=== PATIENT | female | born 2000 | race Caucasian/White ===

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

== ENCOUNTER 2024-03-09 13:01 | Outpatient (CLI) | payer OTHER, SELFPAY ==
--- NOTE | ~2024-03-09 | US_ITS ---
EXAMINATION TYPE: US breast RT limited COMPARISON: Palpable lump right breast REASON FOR STUDY: N63.10 - Unspecified lump in the right breast, unspecifie... TECHNIQUE: Targeted sonographic evaluation of the right breast was performed. INTERPRETATION: Sonographic imaging of the right breast 1:00 position was performed, 6 cm in the nipple. No solid or cystic mass seen. No sonographic abnormality seen in the region scanned.. IMPRESSION: Negative. No sonographic correlate seen at the area of clinical concern. BI-RADS 1: Normal Reviewed, dictated and finalized at location M.
== END 2024-03-09 13:02 | disposition home or self-care (01) ==
PROVIDERS: Visit Provider Student in an Organized Health Care Education/Training Program
DX: N63.10 Unspecified lump in the right breast, unspecified quadrant (principal)
CPT/HCPCS: 76642

== ENCOUNTER 2024-04-01 15:39 | Outpatient (CLI) | payer OTHER, SELFPAY ==
--- NOTE | ~2024-04-01 | US_ITS ---
EXAMINATION: US OB <=14 wk fetus w TV INDICATION: N91.2 - Amenorrhea, unspecified TECHNIQUE: Sonography of the pelvis was performed by transabdominal and transvaginal techniques. COMPARISON: None. RESULT: Uterus: 10.3 x 4.9 x 6.7 cm. Anteverted. Homogenous myometrium. Intrauterine gestational sac: Single present. Mean Sac Diameter: 2.77 cm, corresponding gestational age 7 week 6 days. Yolk sac: 0.5 cm . Embryo: Single present. [place] rump length: 0.97 cm, corresponding gestational age 7 weeks, 0 days. Gestational heart rate: present 139 bpm. Subgestational hematoma: Absent . Right ovary: 4.1 x 1.8 x 2.8 cm. Vascular flow is present. No adnexal mass. Left ovary: 3.1 x 1.8 x 2.7 cm. Vascular flow is present. No adnexal mass. Pelvis free fluid: None. IMPRESSION: Single, live intrauterine gestation. Estimated Gestational Age: 7 weeks, 0 days by crown rump length. MERVIN by ultrasound 11/15/2024. Reviewed, dictated and finalized at location K. IMPRESSION: Single, live intrauterine gestation. Estimated Gestational Age: 7 weeks, 0 days by crown rump length. MERVIN by ultras ound 11/15/2024.
== END 2024-04-01 15:40 | disposition home or self-care (01) ==
LOC: ANHIMG 15:39
PROVIDERS: Visit Provider Student in an Organized Health Care Education/Training Program
DX: Z34.91 Encounter for supervision of normal pregnancy, unspecified, first trimester (principal); Z3A.01 Less than 8 weeks gestation of pregnancy
CPT/HCPCS: 76801; 76817

== ENCOUNTER 2024-06-23 15:11 | Outpatient (CLI) | payer OTHER, SELFPAY ==
[2024-06-23 15:45] LABS: Basophils Percent Auto 0.2 % (0.2-1.2); Eosinophils Absolute Auto 0.2 K/mm3 (0-0.3); Eosinophils Percent Auto 1.2 % (0-4.4); Hematocrit 37.1 % (37.0-47.0); Hemoglobin 12.5 g/dL (12.0-15.0); Immature Granulocyte Absolute 0.08 K/mm3 (0.00-0.031); Immature Granulocyte Percent A 0.6 % (0-0.5); Lymphocytes Absolute Auto 2.12 K/mm3 (0.9-3.2); Lymphocytes Percent Auto 15.5 % (18.3-44.2); Mean Corpuscular HGB Conc 33.7 g/dl (32-36); Mean Corpuscular Hemoglobin 30.5 pg (26-34); Mean Corpuscular Volume 90.5 fl (80-100); Mean Platelet Volume 10.2 fl (7.4-10.4); Monocytes Absolute Auto 0.8 K/mm3 (0.1-0.6); Monocytes Percent Auto 6.1 % (2.6-8.5); Neutrophils Absolute Auto 10.4 K/mm3 (1.3-6.7); Neutrophils Percent Auto 76.4 % (45.5-73.1); Platelet Count Result 257 k/mm3 (150-375); Red Cell Distribution Width 13.2 % (11.5-14.5); White Blood Count 13.7 K/mm3 (4.5-10.0)
[2024-06-23 16:51] LABS: Hepatitis B Surface Antigen Negative (Negative)
[2024-06-23 18:20] LABS: HIV 1/2 Ab P24 Ag Result Negative (Negative)
[2024-06-24 08:04] LABS: CMV IgG Antibody <0.60 U/mL; Varicella IgG Antibody 1.32 S/CO
[2024-06-24 10:21] LABS: Rapid Plasma Reagin Non-Reactive (NonReactive)
== END 2024-06-23 15:12 | disposition home or self-care (01) ==
PROVIDERS: PCP Student in an Organized Health Care Education/Training Program; Visit Provider Student in an Organized Health Care Education/Training Program
DX: N94.89 Other specified conditions associated with female genital organs and menstrual cycle (principal)
CPT/HCPCS: 36415; 84702; 85025; 86592; 86644; 86703; 86747; 86762; 86787; 86850; 86900; 86901; 87086; 87186; 87340; G0432

== ENCOUNTER 2024-10-06 10:52 | Observation (INO) | payer OTHER, SELFPAY ==
[2024-10-06] VITALS (13 sets, daily range): BP systolic 114–119; BP diastolic 62–72; PULSE 79–98; O2SAT 95–100; BMI 36.3
--- NOTE | 2024-10-06 11:20 | PC.NURSE ---
Dr. Clay notified of pt's admission, physical assessment, FHR and vital signs. New orders received to discharge pt home and to encourage pt to wear her compression socks as well as go to the lab to get her 28 week labs drawn.
--- NOTE | 2024-10-06 11:41 | OBADM ---
This patient, Lashae R Hammond, admitted to the OB room OB Post 115 for observation. Patient/family oriented to hospital policies and general routines including ID bracelet, bed and alarms, visiting hours, pain management, procedures, bathroom and other care routines, personal items, smoking policy, room service/diet, and visiting hours. Patient/Family are encouraged to report perceived risks to care and to ask questions if they do not understand what they are told or what they should do.
--- NOTE | 2024-10-07 08:18 | PM.OBTRLD ---
OB - Triage/Final Diagnosis Visit Information Date of evaluation: 10/06/24 Reason for evaluation: other (swelling) Comments/Additional reasons for admission: I have assessed the risk for this patient, Lashae Hammond, and determined that she would benefit from observation care. Evaluation Vital signs: Vital Signs - 24 hr 10/06/24 11:10 10/06/24 11:15 10/06/24 11:25 Pulse Rate 98 Blood Pressure 114/72 Pulse Oximetry 95 Oxygen Delivery Room Air 10/06/24 11:30 10/06/24 11:31 10/06/24 11:35 Pulse Rate 87 Blood Pressure 115/68 Pulse Oximetry 98 98 Oxygen Delivery 10/06/24 11:40 10/06/24 11:45 10/06/24 11:50 Pulse Rate Blood Pressure Pulse Oximetry 98 98 97 Oxygen Delivery 10/06/24 11:55 10/06/24 12:00 10/06/24 12:01 Pulse Rate 91 Blood Pressure 119/62 Pulse Oximetry 100 99 Oxygen Delivery 10/06/24 12:05 10/06/24 12:10 Pulse Rate Blood Pressure Pulse Oximetry 99 100 Oxygen Delivery
== END 2024-10-06 12:20 | disposition home or self-care (01) ==
PROVIDERS: Admitting Provider Student in an Organized Health Care Education/Training Program; Visit Provider Student in an Organized Health Care Education/Training Program
DX: O12.03 Gestational edema, third trimester (principal); Z3A.34 34 weeks gestation of pregnancy
CPT/HCPCS: G0378; G0379

== ENCOUNTER 2024-10-06 12:28 | Outpatient (CLI) | payer OTHER, SELFPAY ==
[2024-10-06 14:14] LABS: Basophils Percent Auto 0.2 % (0.2-1.2); Eosinophils Absolute Auto 0.1 K/mm3 (0-0.3); Eosinophils Percent Auto 0.7 % (0-4.4); Hematocrit 35.1 % (37.0-47.0); Hemoglobin 11.8 g/dL (12.0-15.0); Immature Granulocyte Absolute 0.12 K/mm3 (0.00-0.031); Immature Granulocyte Percent A 0.8 % (0-0.5); Lymphocytes Percent Auto 11.9 % (18.3-44.2); Mean Corpuscular HGB Conc 33.6 g/dl (32-36); Mean Corpuscular Hemoglobin 28.8 pg (26-34); Mean Corpuscular Volume 85.6 fl (80-100); Mean Platelet Volume 10.4 fl (7.4-10.4); Monocytes Absolute Auto 0.9 K/mm3 (0.1-0.6); Monocytes Percent Auto 6.4 % (2.6-8.5); Neutrophils Absolute Auto 11.4 K/mm3 (1.3-6.7); Platelet Count Result 259 k/mm3 (150-375); Red Cell Distribution Width 12.7 % (11.5-14.5); White Blood Count 14.3 K/mm3 (4.5-10.0)
[2024-10-06 14:40] LABS: Glucose 1 Hour PP 50gm Dose 92 mg/dL
[2024-10-06 15:17] LABS: HIV 1/2 Ab P24 Ag Result Negative (Negative)
[2024-10-07 11:14] LABS: Rapid Plasma Reagin Non-Reactive (NonReactive)
== END 2024-10-06 12:29 | disposition home or self-care (01) ==
PROVIDERS: PCP Obstetrics & Gynecology; Visit Provider Obstetrics & Gynecology
DX: Z34.90 Encounter for supervision of normal pregnancy, unspecified, unspecified trimester (principal)
CPT/HCPCS: 36415; 82947; 85025; 86592; 86703; 87086; G0432

== ENCOUNTER 2024-10-31 00:29 | Observation (INO) | payer OTHER, SELFPAY ==
[2024-10-31 00:47] VITALS: BP 125/58; PULSE 97
[2024-10-31 01:21] LABS: Add Urine Microscopic? YES; Appearance Urine Cloudy (Clear); Bacteria Urine 4+ /hpf; Bilirubin Urine Negative (Negative); Blood Urine Negative (Negative); Color Urine Yellow (Yellow); Glucose Urine UA Negative (Negative); Ketones Urine Trace mg/dL (Negative); Leukocyte Esterase Ur Trace LEU/UL (Negative); Nitrate Urine Positive (Negative); Protein Urine 2+ mg/dL (Negative); RBC Urine 0-2 /hpf (0-2); Specific Grav Ur 1.039 (1.001-1.035); Squamous Epithelial Cell Urine Few /hpf (Few); pH Urine 7.5 (5.0-9.0)
[2024-10-31 02:21] VITALS: BMI 36.6
[2024-10-31] MEDS: AMOXICILLIN 500 MG CAPSULE PO (02:24)
--- NOTE | 2024-11-02 00:44 | PM.OBTRLD ---
OB - Triage/Final Diagnosis Visit Information Comments/Additional reasons for admission: I have assessed the risk for this patient, Lashae Hammond, and determined that she would benefit from observation care. Evaluation Laboratory results: Laboratory Tests 10/31/24 00:58 Urine Color Yellow Urine Appearance Cloudy H Urine pH 7.5 Ur Specific [place] 1.039 H Urine Protein 2+ H Urine Glucose (UA) Negative Urine Ketones Trace H Ur Blood (Man) Negative Urine Nitrate Positive H Urine Bilirubin Negative Urine Urobilinogen 1.0 Leukocyte Esterase Rfl Trace H Urine RBC 0-2 Urine WBC 6-10 H Ur Squamous Epith Cells Few Urine Bacteria 4+ H Urine Casts 3-5 Final Diagnosis (1) Abdominal cramping affecting : Code(s): O26.899 - Other specified related conditions, unspecified trimester; R10.9 - Unspecified abdominal pain Status: Acute
== END 2024-10-31 02:35 | disposition home or self-care (01) ==
PROVIDERS: Admitting Provider Obstetrics & Gynecology; PCP Obstetrics & Gynecology; Visit Provider Obstetrics & Gynecology
DX: O26.893 Other specified pregnancy related conditions, third trimester (principal); R10.9 Unspecified abdominal pain; Z3A.37 37 weeks gestation of pregnancy
CPT/HCPCS: 81001; 87086; 87186; A9270; G0378; G0379

== ENCOUNTER 2024-11-10 05:02 | Inpatient (IN) | payer OTHER, SELFPAY ==
[2024-11-10] VITALS (155 sets, daily range): BP systolic 89–145; BP diastolic 39–112; PULSE 39–258; RESP 16–18; TEMP 36.2–37.1; O2SAT 95–100; BMI 38.3
--- NOTE | 2024-11-10 05:13 | LDADM ---
[facility] was admitted to Labor/Delivery/Recovery 104 on 11/10/24 at 05:02. Plans for labor, pain management and were discussed with patient. Patient/family oriented to hospital policies and general routines including ID bracelet, bed and alarms, visiting hours, pain management, procedures, bathroom and other care routines, personal items, smoking policy, room service/diet and guest tray routines, security routines, and visiting hours. Patient/Family are encouraged to report perceived risks to care and to ask questions if they do not understand what they are told or what they should do. See OBIX for further documentation.
[2024-11-10] MEDS: miSOPROStol 25 MCG TABLET 50 MCG VAGINAL (05:51)
[2024-11-10 05:56] LABS: Basophils Percent Auto 0.3 % (0.2-1.2); Eosinophils Absolute Auto 0.2 K/mm3 (0-0.3); Eosinophils Percent Auto 1.1 % (0-4.4); Hematocrit 34.8 % (37.0-47.0); Hemoglobin 11.3 g/dL (12.0-15.0); Immature Granulocyte Percent A 0.7 % (0-0.5); Lymphocytes Absolute Auto 1.95 K/mm3 (0.9-3.2); Lymphocytes Percent Auto 13.9 % (18.3-44.2); Mean Corpuscular HGB Conc 32.5 g/dl (32-36); Mean Corpuscular Volume 83.1 fl (80-100); Mean Platelet Volume 10.7 fl (7.4-10.4); Monocytes Absolute Auto 0.9 K/mm3 (0.1-0.6); Monocytes Percent Auto 6.3 % (2.6-8.5); Neutrophils Absolute Auto 10.9 K/mm3 (1.3-6.7); Neutrophils Percent Auto 77.7 % (45.5-73.1); Platelet Count Result 243 k/mm3 (150-375); Red Blood Count 4.19 M/mm3 (4.2-5.4); Red Cell Distribution Width 13.7 % (11.5-14.5)
--- NOTE | 2024-11-10 06:32 | WPDANESEPP ---
Anes - Eval Pre Procedure Procedure: pain during labor Date/Time: 11/10/24 06:32 Surgeon: Nithin Preop Diagnosis: pain during labor Pre Op Diagnosis: IOL Patient Data Age: 24 Gender: F Height: 1.52 m Weight: 89 kg Last Vital Signs Pulse 86 11/10/24 06:31 BP 105/84 11/10/24 06:31 Pulse Ox 98 11/10/24 06:28 O2 Del Method Room Air 11/10/24 05:13 Allergies Allergy/AdvReac Type Severity Reaction Status Date / Time morphine Allergy Hives Verified 11/09/24 16:56 Home Medications ?Medication ?Instructions ?Recorded ?Confirmed ?Type vits no.126-ferrous fum tablet PO 04/21/24 11/09/24 History 28 mg iron-folic acid 800 mcg tablet (Classic ) Laboratory Tests 11/10/24 05:46 WBC 14.0 H K/mm3 (4.5-10.0) RBC 4.19 L M/mm3 (4.2-5.4) Hgb 11.3 L g/dL (12.0-15.0) Hct 34.8 L % (37.0-47.0) MCV 83.1 fl (80-100) MCH 27.0 pg (26-34) MCHC 32.5 g/dl (32-36) RDW 13.7 % (11.5-14.5) Plt Count 243 k/mm3 (150-375) MPV 10.7 H fl (7.4-10.4) Immature Gran % (Auto) 0.7 H % (0-0.5) Neut % (Auto) 77.7 H % (45.5-73.1) Lymph % (Auto) 13.9 L % (18.3-44.2) [place] % (Auto) 6.3 % (2.6-8.5) Eos % (Auto) 1.1 % (0-4.4) Baso % (Auto) 0.3 % (0.2-1.2) Lymph # (Auto) 1.95 K/mm3 (0.9-3.2) [place] # (Auto) 0.9 H K/mm3 (0.1-0.6) Eos # (Auto) 0.2 K/mm3 (0-0.3) Baso # (Auto) 0.0 K/mm3 (0.0-0.1) Abs Immat Gran (auto) 0.10 H K/mm3 (0.00-0.031) Absolute Neuts (auto) 10.9 H K/mm3 (1.3-6.7) Absolute Nucleated RBC 0.000 K/mm3 (0.0-0.012) Nucleated RBC % 0.0 % (0.0-0.2) HIV 1&2 Ab/P24 Ag 4thGn Pending Blood Type Pending Antibody Screen Pending Patient hx anesthesia problems: none Family hx anesthesia problems: none Results Review: All pre-operative results and documents have been reviewed as part of the pre-operative evaluation. [facility] Past Medical History Medical History Marijuana smoker, episodic Vaping nicotine dependence, non-tobacco product Suppression of menses Mastalgia Depression Anxiety Surgical History Surgical History History of appendectomy Family History Family History Mother Diabetes mellitus Father Diabetes mellitus Social History Social History Smoking packs per day: 0.3 Smoking cigarettes per day: 6.0 Years smoked: 3 Smoking pack-years: 0.90 Smoking status: Current every day smoker Tobacco type: e-cigarettes/vaping Second hand tobacco smoke exposure: Yes Alcohol intake: former Alcohol use details: occasional Substance use: current Substance use type: marijuana Do You Feel Safe in your Home?: Yes Lack of Transportation: No Lack of Food: Never True Current Housing: I Have Housing Concerned About Future Housing: No Difficulty Paying Gas/Electric Bills: No Difficulty Paying for Meds: No Currently Unemployed: No Education: High School Diploma/GED Difficulty w/ Childcare or Family Care: No Living arrangements: with family Occupation/Education: occupation Gender identity (if verbalized by the patient): Female Sexual Orientation (if Verbalized by the Patient): Straight or Heterosexual Spiritual care concerns: No Exam Day of Procedure 11/10/24 06:32 Patient weight: obese (bmi 38.3)
[2024-11-10 06:48] LABS: HIV 1/2 Ab P24 Ag Result Negative (Negative)
[2024-11-10] MEDS: LACTATED RINGERS 1,000 ML 125 ML IV CONT ×3 (07:15→12:49)
[2024-11-10 07:32] LABS: Syphilis IgG/IgM Antibody Negative (Negative)
[2024-11-10] MEDS: fentaNYL CITRATE INJ (*CRX) 100 MCG/2 ML VIAL IV PUSH ×2 (08:28→11:18)
--- NOTE | 2024-11-10 08:54 | PM.IMHP ---
H&P: HPI History of Present Illness Date/Time: 11/10/24 08:54 Chief Complaint: Elective IOL Narrative: Lashae is a 24yo @ 39.0wks who presented for elective IOL. She has had regular care. Reports good movement. NO VB or LOF. Her is complicated by: - BV/UTI in early preg - tobacco use Review of Systems Constitutional: Constitutional: Denies chills, Denies fever(s) and Denies headache(s) Eyes: Eyes: Denies change in vision ENT: Denies headache(s) Cardiovascular: Cardiovascular: Denies chest pain and Denies dyspnea Respiratory: Respiratory: Denies dyspnea Genitourinary: Genitourinary: Denies abnormal vaginal bleeding and Denies vaginal discharge Neurologic: Denies headache(s) Psychiatric: Psychiatric: Denies anxiety and Denies depression PMFSH Past Medical History Medical History Marijuana smoker, episodic Vaping nicotine dependence, non-tobacco product Suppression of menses Mastalgia Depression Anxiety Surgical History Surgical History History of appendectomy Family History Family History Mother Diabetes mellitus Father Diabetes mellitus Social History Social History Smoking packs per day: 0.3 Smoking cigarettes per day: 6.0 Years smoked: 3 Smoking pack-years: 0.90 Smoking status: Current every day smoker Tobacco type: e-cigarettes/vaping Second hand tobacco smoke exposure: Yes Alcohol intake: former Alcohol use details: occasional Substance use: current Substance use type: marijuana Do You Feel Safe in your Home?: Yes Lack of Transportation: No Lack of Food: Never True Current Housing: I Have Housing Concerned About Future Housing: No Difficulty Paying Gas/Electric Bills: No Difficulty Paying for Meds: No Currently Unemployed: No Education: High School Diploma/GED Difficulty w/ Childcare or Family Care: No Living arrangements: with family Occupation/Education: occupation Gender identity (if verbalized by the patient): Female Sexual Orientation (if Verbalized by the Patient): Straight or Heterosexual Spiritual care concerns: No Meds Home Medications and Allergies Home Medications ?Medication ?Instructions ?Recorded ?Confirmed ?Type vits no.126-ferrous fum tablet PO 04/21/24 11/09/24 History 28 mg iron-folic acid 800 mcg tablet (Classic ) Allergies Allergy/AdvReac Type Severity Reaction Status Date / Time morphine Allergy Hives Verified 11/10/24 06:40 Vital Signs Vital Signs - 24 hr 11/10/24 05:13 11/10/24 05:53 11/10/24 05:58 Temperature Pulse Rate Blood Pressure Pulse Oximetry 96 97 Oxygen Delivery Room Air 11/10/24 06:03 11/10/24 06:08 11/10/24 06:13 Temperature Pulse Rate Blood Pressure Pulse Oximetry 96 98 96 Oxygen Delivery 11/10/24 06:18 11/10/24 06:23 11/10/24 06:28 Temperature Pulse Rate Blood Pressure Pulse Oximetry 96 96 98 Oxygen Delivery 11/10/24 06:30 11/10/24 06:31 11/10/24 06:32 Temperature 97.2 F L Pulse Rate 86 Blood Pressure 105/84 Pulse Oximetry 97 Oxygen Delivery 11/10/24 06:37 11/10/24 06:42 11/10/24 06:47 Temperature Pulse Rate Blood Pressure Pulse Oximetry 99 98 99 Oxygen Delivery 11/10/24 06:52 11/10/24 06:56 11/10/24 07:01 Temperature Pulse Rate Blood Pressure Pulse Oximetry 98 99 100 Oxygen Delivery 11/10/24 07:06 11/10/24 07:11 11/10/24 07:16 Temperature Pulse Rate Blood Pressure Pulse Oximetry 100 100 97 Oxygen Delivery 11/10/24 07:21 11/10/24 07:26 11/10/24 07:31 Temperature Pulse Rate 83 Blood Pressure 122/73 Pulse Oximetry 97 98 98 Oxygen Delivery 11/10/24 07:36 11/10/24 07:41 11/10/24 07:46 Temperature Pulse Rate Blood Pressure Pulse Oximetry 99 99 98 Oxygen Delivery 11/10/24 07:51 11/10/24 07:56 11/10/24 08:03 Temperature Pulse Rate Blood Pressure Pulse Oximetry 98 98 98 Oxygen Delivery 11/10/24 08:08 11/10/24 08:13 11/10/24 08:18 Temperature Pulse Rate Blood Pressure Pulse Oximetry 99 99 100 Oxygen Delivery 11/10/24 08:23 11/10/24 08:28 11/10/24 08:31 Temperature Pulse Rate 84 Blood Pressure 113/48 L Pulse Oximetry 98 95 Oxygen Delivery 11/10/24 08:33 11/10/24 08:38 11/10/24 08:43 Temperature Pulse Rate Blood Pressure Pulse Oximetry 98 98 98 Oxygen Delivery 11/10/24 08:45 11/10/24 08:48 11/10/24 08:50 Temperature Pulse Rate 95 79 Blood Pressure 120/75 115/72 Pulse Oximetry 96 Oxygen Delivery 11/10/24 08:52 11/10/24 08:53 Temperature Pulse Rate 83 Blood Pressure 119/60 Pulse Oximetry 97 Oxygen Delivery Exam Const: General: cooperative, no acute distress and obese Nutritional Appearance: obese Orientation/consciousness: patient oriented x3 Resp: Effort & Inspection: normal respiratory effort Cardio: Rate: regular rate GI: GI Palp: No abdominal tenderness : Other: FHT's: 150's/ mod kai/ + accels/ no decels - cat 1 TOCO: ctxs q2-3min Cervix: 4.5/50/-2 Membranes: AROM, clear 0700 Presentation: cephalic Skin: General skin exam: normal color Neuro: General: patient oriented x3 Extrem: General: normal to inspection Psych: Appearance: grossly normal Affect: normal affect Attitude: cooperative H&P: Results Labs Labs: Short CBC 11/10/24 Range/Units 05:46 WBC 14.0 H (4.5-10.0) K/mm3 Hgb 11.3 L (12.0-15.0) g/dL Hct 34.8 L (37.0-47.0) % Plt Count 243 (150-375) k/mm3 Assessment and Plan Assessment and plan (1) Encounter for elective induction of labor: Code(s): Z34.90 - Encounter for supervision of normal , unspecified, unspecified trimester Status: Acute Plan - Admitted to L&D this AM - cytotec x1 buccal; cervix favorable - AROM, clear performed 0700 - Pitocin augmentation - Continuous monitoring; currently reassuring - GBS negative - Anesthesia consult PRN Pain
--- NOTE | 2024-11-10 12:32 | PM.OBPNLAB ---
Pain Control Date/time seen: 11/10/24 12:32 Pain control: epidural Pelvic Exam Dilation (cm): 7 Effacement (%): 90 station: 0 Amniotic membrane status: Ruptured (AROM, clear 0700) Contractions Monitor mode: External Contraction frequency: 2 (-3) Contraction pattern: Regular Status status: Category l Assessment and Plan Assessment: active labor Plan: continuous present management Comments: pitocin augmentation if contractions space out or no cervical change
--- NOTE | 2024-11-10 14:00 | PM.OBPRVD ---
OB - Vaginal Delivery Note Procedure Delivery date: 11/10/24 Events: Elective Induction of Labor Induction method: Per Misoprostol Protocol (x1) Delivery augmentation: Rupture of Membranes Delivery monitor: External FHT and External Uterine Route of delivery: Episiotomy description: None Laceration Description: None Specimen: No Quantitative Blood Loss (ml): 150 Anesthesia type: Epidural Disposition: Floor Complications: No immediate complications Baby Date of : 11/10/24 Time of : 13:41 Gestational Age by Date: 39 Infant gender: Male presentation: vertex position: Left Occiput Anterior Placenta delivery description: Expressed Cord Vessel Description: 3 Vessels and Delayed Cord Clamping score one minute: 8 score five minutes: 9 Narrative: Lashae rapidly progressed to complete dilation with strong desire to push as her epidural was not working well. She pushed for approximately 15 minutes with good maternal effort delivered the head over intact perineum. No nuchal cord was palpated. She easily delivered the infant's shoulders and body without complication. The infant was immediately placed skin to skin in the mouth and nose were bulb suction. Delayed cord clamping was performed. The umbilical cord was then doubly clamped and cut. A segment of cord was collected for cord gases. The remaining cord blood was collected for typing. With Pitocin running and gentle downward traction on the cord, the placenta delivered without complications. Bimanual massage was performed and good uterine tone with minimal bleeding was noted. She was examined and no lacerations were identified. Sponge, lap, instrument, and needle counts were correct at the end of the procedure. Mom and baby were left bonding in the birthing suite in stable condition.
--- NOTE | 2024-11-10 16:10 | OBPPTRN ---
Patient transferred to post room #[id number] ( wheelchair). Support person present. Oriented to unit, room, information board, rooming in, admission packet and security measures. Patient verbalizes understanding.
[2024-11-10] MEDS: DOCUSATE SODIUM 100 MG CAPSULE PO (16:44)
[2024-11-11 05:15] VITALS: BP 107/69; PULSE 99; RESP 16; TEMP 36.7; O2SAT 99
[2024-11-11 05:40] LABS: Hematocrit 33.5 % (37.0-47.0); Hemoglobin 10.7 g/dL (12.0-15.0); Mean Corpuscular HGB Conc 31.9 g/dl (32-36); Mean Corpuscular Hemoglobin 26.6 pg (26-34); Mean Corpuscular Volume 83.1 fl (80-100); Mean Platelet Volume 10.7 fl (7.4-10.4); Platelet Count Result 259 k/mm3 (150-375); Red Blood Count 4.03 M/mm3 (4.2-5.4); Red Cell Distribution Width 13.7 % (11.5-14.5); White Blood Count 16.9 K/mm3 (4.5-10.0)
--- NOTE | 2024-11-11 07:12 | PM.OBPNVD ---
OB - PN: Subj Subjective Date/time seen: 11/11/24 07:14 Narrative: PPD#1 Lashae reports doing well today. Her bleeding is supervisor insulation. Her pain is controlled. She is tolerating regular diet, voiding, passing gas, and ambulating without issues. She is breast feeding. She would like her son circumcised. She would like to go home today. OB - PN: Obj Data Labs 11/11/24 05:23 Labs: Laboratory Results - last 24 hr 11/10/24 05:46 WBC 14.0 H RBC 4.19 L Hgb 11.3 L Hct 34.8 L MCV 83.1 MCH 27.0 MCHC 32.5 RDW 13.7 Plt Count 243 MPV 10.7 H Immature Gran % (Auto) 0.7 H Neut % (Auto) 77.7 H Lymph % (Auto) 13.9 L [place] % (Auto) 6.3 Eos % (Auto) 1.1 Baso % (Auto) 0.3 Lymph # (Auto) 1.95 [place] # (Auto) 0.9 H Eos # (Auto) 0.2 Baso # (Auto) 0.0 Abs Immat Gran (auto) 0.10 H Absolute Neuts (auto) 10.9 H Absolute Nucleated RBC 0.000 Nucleated RBC % 0.0 Syphilis IgG/IgM Ab Negative HIV 1&2 Ab/P24 Ag 4thGn Negative Blood Type O Positive Antibody Screen Negative OB - PN A/P Assessment and Plan (1) Normal vaginal delivery of second : Code(s): O80 - Encounter for full-term uncomplicated delivery Status: Acute Plan day: 1 Plan: routine care and discharge home (this PM) Comments: - PO pain meds - Regular diet - Ambulation and hydration encouraged - Continue putting baby to breast q2-3hr - Circ performed w/o issue - Pelvic rest; take meds as prescribed - ER return precautions: fever, n/v/abd pain, bleeding, HTN Time Spent With Patient Time: Total time spent is greater than 50% in coordination of care (as documented) at patient's floor/unit and/or counseling patient: Review of Systems Constitutional: Constitutional: Denies chills, Denies fever(s) and Denies headache(s) Eyes: Eyes: Denies change in vision ENT: Denies dizziness and Denies headache(s) Cardiovascular: Cardiovascular: Denies chest pain, Denies palpitations and Denies dyspnea Respiratory: Respiratory: Denies cough and Denies dyspnea Gastrointestinal: Gastrointestinal: Denies nausea and Denies vomiting Neurologic: Denies dizziness and Denies headache(s) Endocrine: Endocrine: Denies palpitations Exam Const: General: cooperative, comfortable and no acute distress Orientation/consciousness: patient oriented x3 Resp: Effort & Inspection: normal respiratory effort Auscultation: clear to auscultation bilaterally Cardio: Rate: regular rate GI: Inspection: non-distended GI Palp: No abdominal tenderness and Yes Soft to palpation Auscultation: normal bowel sounds : Other: fundus firm Skin: General skin exam: normal color Neuro: General: patient oriented x3 Extrem: General: normal to inspection Psych: Appearance: grossly normal Affect: normal affect Attitude: cooperative
--- NOTE | 2024-11-11 07:39 | PM.OBDSVD ---
DS: Admitting Diagnosis Discharge Date 11/11/24 Admitting Diagnosis Elective Induction of Labor DS: Discharge Diagnosis Discharge Diagnosis (1) Normal vaginal delivery of second : Code(s): O80 - Encounter for full-term uncomplicated delivery Status: Acute OB - DS: Summary OB Procedures : Ultrasound OB Procedures Intrapartum: Spontaneous Vag Delivery OB Procedures: : None Peripartum Data Infant Delivery Method: Natural Vaginal Laceration Description: None Episiotomy description: None complications: none 1: Gender: Male Disposition of : home Status at Discharge Functional status at discharge: independent ambulation Overall status at discharge: patient is back to baseline Time Spent with Patient Time attestation: Total time spent providing and/or coordinating discharge services: Exam Const: General: cooperative, comfortable, no acute distress and obese Orientation/consciousness: patient oriented x3 Resp: Effort & Inspection: normal respiratory effort Auscultation: clear to auscultation bilaterally Cardio: Rate: regular rate GI: Inspection: non-distended GI Palp: No abdominal tenderness and Yes Soft to palpation Auscultation: normal bowel sounds : Other: fundus firm Skin: General skin exam: normal color Neuro: General: patient oriented x3 Extrem: General: normal to inspection Psych: Appearance: grossly normal Affect: normal affect Attitude: cooperative DS: Data Data Completed and Pending Labs on day of discharge: Labs from last 24 hours 11/11/24 05:23 WBC 16.9 H RBC 4.03 L Hgb 10.7 L Hct 33.5 L MCV 83.1 MCH 26.6 MCHC 31.9 L RDW 13.7 Plt Count 259 MPV 10.7 H Discharge Plan Discharge Attending physician on discharge: Noreen Weller Discharging Clinician: Noreen Weller Anticipated Discharge Date/Time: 11/11/24 15:00 Patient Disposition: Home, Self-Care Activity: may shower and pelvic rest Diet: regular Patient Instructions: Antibiotic Form, Vaginal Delivery (DC) Patient Language: Turkish Stand Alone Forms: General Discharge Information Follow-up/Referrals: Noreen Weller MD [Primary Care Provider] - 4 Weeks Discharge Medications: New acetaminophen 325 mg Tablet 650 mg PO Q6H PRN (Reason: Mild Pain (1-3) Or Headache) Qty: 60 0RF docusate sodium 100 mg Capsule 100 mg PO BID PRN (Reason: Constipation) Qty: 90 0RF ibuprofen 600 mg Tablet 600 mg PO Q6H PRN (Reason: Cramping) Qty: 40 0RF Continued Classic 28 mg iron- 800 mcg tablet PO Date of admission: 11/10/24 05:02 Primary Care Provider: Noreen Weller Admitting Provider: Noreen Weller Attending physician on admission: Noreen Weller Condition: Stable
[2024-11-11 07:45] VITALS: BP 119/70; PULSE 96; RESP 16; TEMP 36.8; O2SAT 98
[2024-11-11] MEDS: DOCUSATE SODIUM 100 MG CAPSULE PO (08:05)
[2024-11-11] MEDS: MULTIVIT/MIN/PREN/FOL AC/IRON TABLET 1 TAB PO (08:05)
--- NOTE | 2024-11-11 08:40 | PC.NURSE ---
Consulted with mother concerning needs and she shared her ability to independently latch infant optimally without pain. Reviewed positioning and alignment, supporting breast, off-centered (asymmetrical latch) and leading with the chin with big, open, wide gape. latched optimally to the [right] breast in [ cradle] position. Education given to the mother of how to visualize the suckling (with good rocking jaw motion) swallows (dropping of the lower jaw) and how to listen for drinking at the breast (the ka sound). The infant was [able] to maintain latch without discomfort to mother. Nipple care reviewed with optimal latch, good positioning and using clean hands when touching her breast. Mother is feeding appropriately for growth of and understands stimulating to eat if needed. Infant has had appropriate feedings in the last 24 hours meets the outcomes for weight, output, blood sugar and jaundice at this time. Reinforced understanding of milk production, transition of milk, signs of adequate intake, transition of stool, prevention/relief of engorgement, plugged ducts, mastitis, responsive watching for feeding cues, the different methods of stimulating to breastfeed 1-3 hours after the start of the last feeding, community resources, and when to call a provider using the resource of the feeding sheet along with the mom and baby guide. Mother voiced understanding of the information shared, is confident to continue effectively her at home, when to call for assistance, denies any additional assistance or education at this time. Reported to the Primary RN.
[2024-11-11] MEDS: INFLUENZA TRIVALENT VACCINE 45 MCG/0.5 ML SYRINGE IM (11:30)
[2024-11-11 12:41] VITALS: BP 116/69; PULSE 81; RESP 16; TEMP 36.7; O2SAT 97
--- NOTE | 2024-11-11 13:00 | PC.NURSE ---
Mother requested WIC referral, form completed and faxed to the [place] office, copy placed on mother's physical chart.
[2024-11-13 11:33] VITALS: BP 121/72; PULSE 86; RESP 20; TEMP 36.9; O2SAT 98
== END 2024-11-11 15:00 | disposition home or self-care (01) | DRG 560 ==
LOC: ANHLDR 05:06 → ANHOB2 16:41
PROVIDERS: Admitting Provider Obstetrics & Gynecology; PCP Obstetrics & Gynecology; Visit Provider Obstetrics & Gynecology
DX: O99.334 Smoking (tobacco) complicating childbirth (principal); Z37.0 Single live birth; Z3A.39 39 weeks gestation of pregnancy; F17.290 Nicotine dependence, other tobacco product, uncomplicated; Z23 Encounter for immunization
CPT/HCPCS: 36415; 85025; 85027; 86593; 86703; 86850; 86900; 86901; 90471; 90656; A9270; G0008; G0432; J2795; J3010; J7120